=== PATIENT | male | born 1965 | race Caucasian/White ===

== ENCOUNTER 2017-03-03 10:56 | Emergency (ER) | payer OTHER ==
[~2017-03-03] VITALS: Ht 177.8 cm; Wt 108.9 kg
[~2017-03-03 10:56] MED LIST: NORFLEX100 MG PO; PERCOCET 5-3251 EACH PO
== END 2017-03-03 12:31 | disposition home or self-care (01) ==
LOC: ER 10:56
DX: M25.512 Pain in left shoulder (principal); G89.29 Other chronic pain; F17.210 Nicotine dependence, cigarettes, uncomplicated; Z98.890 Other specified postprocedural states